=== PATIENT | female | born 2000 | race Caucasian/White ===

== ENCOUNTER → 2020-07-10 19:07 | Outpatient (BNVA) | payer OTHER, SELFPAY | PROVIDERS: Family Provider Family Medicine; PCP Family Medicine; Visit Provider Nurse Practitioner Family | DX: Z20.828 Contact with and (suspected) exposure to other viral communicable diseases (principal) | CPT/HCPCS: 87635 ==

== ENCOUNTER → 2020-09-06 15:48 | Outpatient (BNVA) | payer OTHER, SELFPAY | PROVIDERS: Family Provider Family Medicine; PCP Family Medicine; Visit Provider Nurse Practitioner Women's Health | DX: Z01.419 Encounter for gynecological examination (general) (routine) without abnormal findings (principal); Z11.3 Encounter for screening for infections with a predominantly sexual mode of transmission; Z30.015 Encounter for initial prescription of vaginal ring hormonal contraceptive | CPT/HCPCS: 88175 ==

== ENCOUNTER → 2020-11-14 14:52 | Outpatient (BNVA) | payer OTHER, SELFPAY | PROVIDERS: Family Provider Family Medicine; PCP Family Medicine; Visit Provider Nurse Practitioner Family | DX: J06.9 Acute upper respiratory infection, unspecified (principal); Z20.828 Contact with and (suspected) exposure to other viral communicable diseases | CPT/HCPCS: 87635 ==

== ENCOUNTER → 2021-01-25 13:46 | Outpatient (BNVA) | payer OTHER, SELFPAY | PROVIDERS: Family Provider Family Medicine; PCP Family Medicine; Visit Provider Nurse Practitioner Family | DX: Z20.828 Contact with and (suspected) exposure to other viral communicable diseases (principal) | CPT/HCPCS: 87635 ==

== ENCOUNTER 2022-02-05 14:51 | Outpatient (CLI) | payer BC, SELFPAY ==
--- NOTE | 2022-02-05 15:15 | US_ITS ---
WS: [id number] ULTRASOUND RIGHT BREAST HISTORY: Nipple inversion, milky discharge. COMPARISON: LEFT for comparison. TECHNIQUE: 2-D and Doppler. Ultrasound is directed to the anterior RIGHT breast from the nipple. There are mildly prominent ducts heterogeneity intraluminal contents. There are a few very minimal areas of increased vascularity not ed bilaterally. Some of the material within the ducts is slightly mobile. There are numerous ducts wh ich are dilated extending towards the nipple with heterogeneity. Similar appearance but less involved involving the LEFT areolar region. The subareolar ducts measure greater than 2 mm. US/US breast RT limited* [id number] IMPRESSION: BI-RADS: 2-Benign FOLLOW-UP: See Report Dilated ducts with debris in the ducts bilaterally but greatest involving the R IGHT subareolar region. Consistent with duct ectasia and inspissated debris wit hin the ducts. There is some very mild inflammation within the debris bilateral ly which may be secondary to inflammation of the castro.
== END 2022-02-05 14:52 | disposition home or self-care (01) ==
PROVIDERS: Visit Provider Nurse Practitioner Women's Health
DX: N60.41 Mammary duct ectasia of right breast (principal); N64.59 Other signs and symptoms in breast; N64.52 Nipple discharge
CPT/HCPCS: 76642